=== PATIENT | male | born 1960 | race Hispanic/Latino ===

== ENCOUNTER 2023-02-08 21:29 | Inpatient (IN) | payer MEDICARE ==
[~2023-02-08 21:29] MED LIST: Iopamidol-370 76% 500 ML MDV (1 ML CHARGE) ONE
[2023-02-08 21:49] LABS: #Eosinphils 0.1 thou/uL (0.0-0.7); #Monocytes 0.6 thou/uL (0.11-0.59); #Neutrophils 7.7 thou/uL (1.40-6.50); %Basophils 0.1 % (0.0-1.0); %Eosinophils 0.7 % (0.0-10.0); %Lymphocytes 7.3 % (21.0-51.0); %Monocytes 6.7 % (0.0-10.0); Hematocrit 41.5 % (42.0-52.0); Hemoglobin 13.8 g/dL (14.0-18.0); Mean Corpuscular HGB CONC 33.3 g/dL (32.0-36.0); Mean Corpuscular Hemoglobin 31.2 pg (27.0-31.0); Mean Corpuscular Volume 93.9 fl (78.0-98.0); Mean Platelet Volume 11.1 fL (7.4-10.4); Platelet Count 142 10x3/uL (130-400); Red Blood Cell (RBC) Count 4.42 mill/uL (4.70-6.10); White Blood Cell (WBC) Count 9.1 10x3/uL (4.8-10.8)
[2023-02-08] MEDS ORDERED: Acetaminophen 500 MG TAB ONE (22:00)
[2023-02-08 22:15] LABS: ALT (SGPT) 18 U/L (8-55); AST (SGOT) 19 U/L (5-34); Albumin 4.1 g/dL (3.4-4.8); Alkaline Phosphatase 98 U/L (40-110); Anion Gap 26 mmol/L (10-20); BUN (Urea Nitrogen) 21 mg/dL (8.4-25.7); Bilirubin, Total 1.3 mg/dL (0.2-1.2); Calc. Creatinine Clearance 0 mL/min (70-130); Calcium 8.6 mg/dL (7.8-10.44); Carbon Dioxide 17 mmol/L (23-31); Chloride 103 mmol/L (98-107); Estimated GFR 46; Globulin 2.8 g/dL (2.4-3.5); Glucose 85 mg/dL (80-115); Lipase 26 U/L (8-78); Potassium 3.9 mmol/L (3.5-5.1); Protein, Total 6.9 g/dL (5.8-8.1); Sodium 142 mmol/L (136-145)
[2023-02-08] MEDS ORDERED: Cefepime 2 GM VIAL ONE (23:27)
[2023-02-08] MEDS ORDERED: VANCOMYCIN 1.25 GM/250 ML BAG 1.25 GM in Premix Bag 1 BAG IVPB SCH (23:45)
[2023-02-09 00:33] LABS: SARS-CoV-2 NAA Rapid Test Not Detected (NotDetected)
[2023-02-09] MEDS ORDERED: Furosemide 20 MG/2 ML VIAL ONE ×2 (00:33→07:57)
[2023-02-09 02:17] LABS: Anion Gap 16 mmol/L (10-20); BUN (Urea Nitrogen) 20 mg/dL (8.4-25.7); Calc. Creatinine Clearance 0 mL/min (70-130); Calcium 8.3 mg/dL (7.8-10.44); Carbon Dioxide 17 mmol/L (23-31); Chloride 106 mmol/L (98-107); Estimated GFR 51; Glucose 106 mg/dL (80-115); Potassium 3.8 mmol/L (3.5-5.1); Sodium 135 mmol/L (136-145)
[2023-02-09 02:41] LABS: Troponin I 0.023 ng/mL (< 0.028)
[2023-02-09] MEDS ORDERED: Calcium Carbonate 500 MG ChewTAB PO PRN (02:45)
[2023-02-09] MEDS ORDERED: Ondansetron ODT 4 MG TAB PO PRN (02:45)
[2023-02-09] MEDS ORDERED: Senokot S 8.6-50 MG TAB PO PRN (02:45)
[2023-02-09] MEDS ORDERED: Ondansetron PF 4 MG/2 ML Vial IVP PRN (02:45)
[2023-02-09] MEDS ORDERED: Acetaminophen 325 MG TAB PO PRN (02:45)
[2023-02-09] MEDS: Furosemide 20 MG/2 ML VIAL SLOW IVP SCH ×2 (05:50→14:39)
[2023-02-09 06:05] LABS: Troponin I 0.019 ng/mL (< 0.028)
[2023-02-09] MEDS ORDERED: Acetaminophen 325 MG TAB ONE (08:30)
[2023-02-09] MEDS: Guaifenesin DM 100-10/5 ML UDCUP PO PRN ×3 (08:35→19:47)
[2023-02-09] MEDS: Doxycycline 100 MG in Sodium Chloride 0.9% 100 ML IVPB SCH ×2 (09:01→19:47)
[2023-02-09] MEDS ORDERED: cefTRIAXone (ROCEPHIN) 1 GM VIAL ONE (11:11)
[2023-02-09] MEDS: cefTRIAXone\\ROCEPHIN 1 GM in Sodium Chloride 0.9% 100 ML IVPB SCH (11:17)
[2023-02-09 15:07] VITALS: BMI 29.5
[2023-02-10 05:44] LABS: #Eosinphils 0.1 thou/uL (0.0-0.7); #Monocytes 0.9 thou/uL (0.11-0.59); #Neutrophils 4.9 thou/uL (1.40-6.50); %Basophils 0.3 % (0.0-1.0); %Eosinophils 1.3 % (0.0-10.0); %Lymphocytes 13.9 % (21.0-51.0); %Monocytes 13.1 % (0.0-10.0); %Neutrophils 71.3 % (42.0-75.0); Mean Corpuscular HGB CONC 32.5 g/dL (32.0-36.0); Mean Corpuscular Hemoglobin 30.7 pg (27.0-31.0); Mean Corpuscular Volume 94.3 fl (78.0-98.0); Mean Platelet Volume 11.5 fL (7.4-10.4); Platelet Count 144 10x3/uL (130-400); RBC Distribution Width 14.3 % (11.5-14.5); Red Blood Cell (RBC) Count 4.24 mill/uL (4.70-6.10); White Blood Cell (WBC) Count 6.9 10x3/uL (4.8-10.8)
[2023-02-10] MEDS: Furosemide 40 MG/4 ML VIAL SLOW IVP SCH ×2 (05:58→14:36)
[2023-02-10 06:19] LABS: ALT (SGPT) 39 U/L (8-55); AST (SGOT) 38 U/L (5-34); Albumin 3.7 g/dL (3.4-4.8); Alkaline Phosphatase 104 U/L (40-110); Anion Gap 14 mmol/L (10-20); BUN (Urea Nitrogen) 22 mg/dL (8.4-25.7); Bilirubin, Total 1.2 mg/dL (0.2-1.2); Calc. Creatinine Clearance 69 mL/min (70-130); Calcium 8.5 mg/dL (7.8-10.44); Carbon Dioxide 22 mmol/L (23-31); Chloride 106 mmol/L (98-107); Estimated GFR 61; Globulin 3.3 g/dL (2.4-3.5); Glucose 83 mg/dL (80-115); Potassium 3.9 mmol/L (3.5-5.1); Sodium 138 mmol/L (136-145)
[2023-02-10] MEDS: Doxycycline 100 MG in Sodium Chloride 0.9% 100 ML IVPB SCH ×2 (08:23→20:31)
[2023-02-10] MEDS: cefTRIAXone\\ROCEPHIN 1 GM in Sodium Chloride 0.9% 100 ML IVPB SCH (11:33)
[2023-02-10] MEDS: Guaifenesin DM 100-10/5 ML UDCUP PO PRN ×2 (18:09→20:34)
[2023-02-10] MEDS: Sacubitril 24MG/Valsartan 26 MG TAB PO SCH (20:33)
[2023-02-10] MEDS: Carvedilol 6.25 MG TAB PO SCH (20:33)
[2023-02-10] MEDS ORDERED: Simvastatin 10 MG TAB PO SCH (21:00)
[2023-02-11] MEDS: Furosemide 40 MG/4 ML VIAL SLOW IVP SCH (05:58)
[2023-02-11] MEDS ORDERED: Levothyroxine 175 MCG TAB PO SCH (06:00)
[2023-02-11 06:21] LABS: #Eosinphils 0.1 thou/uL (0.0-0.7); %Basophils 0.3 % (0.0-1.0); %Eosinophils 2.2 % (0.0-10.0); %Lymphocytes 17.2 % (21.0-51.0); %Monocytes 15.6 % (0.0-10.0); %Neutrophils 64.4 % (42.0-75.0); Hematocrit 45.5 % (42.0-52.0); Mean Corpuscular Hemoglobin 30.5 pg (27.0-31.0); Mean Corpuscular Volume 92.5 fl (78.0-98.0); Mean Platelet Volume 11.3 fL (7.4-10.4); Platelet Count 148 10x3/uL (130-400); RBC Distribution Width 14.2 % (11.5-14.5); Red Blood Cell (RBC) Count 4.92 mill/uL (4.70-6.10); White Blood Cell (WBC) Count 6.2 10x3/uL (4.8-10.8)
[2023-02-11 06:46] LABS: Anion Gap 14 mmol/L (10-20); BUN (Urea Nitrogen) 22 mg/dL (8.4-25.7); Calc. Creatinine Clearance 80 mL/min (70-130); Carbon Dioxide 24 mmol/L (23-31); Chloride 102 mmol/L (98-107); Estimated GFR 73; Glucose 96 mg/dL (80-115); Potassium 3.1 mmol/L (3.5-5.1); Sodium 137 mmol/L (136-145)
[2023-02-11] MEDS: Sacubitril 24MG/Valsartan 26 MG TAB PO SCH (07:55)
[2023-02-11] MEDS: Doxycycline 100 MG in Sodium Chloride 0.9% 100 ML IVPB SCH (07:55)
[2023-02-11] MEDS: Carvedilol 6.25 MG TAB PO SCH (07:55)
[2023-02-11] MEDS ORDERED: Spironolactone 25 MG TAB PO SCH (08:00)
[2023-02-11] MEDS ORDERED: Potassium Chloride 20 MEQ TAB PO SCH (08:45)
[2023-02-11] MEDS: Furosemide 40 MG TAB PO SCH ×2 (08:58→14:48)
[2023-02-11] MEDS ORDERED: Empagliflozin 25 MG TAB PO SCH (09:00)
[2023-02-11 10:17] LABS: Magnesium 2.1 mg/dL (1.6-2.6)
[2023-02-11] MEDS ORDERED: Pantoprazole 40 MG VIAL IVP SCH ×2 (10:30→21:00)
[2023-02-11] MEDS: cefTRIAXone\\ROCEPHIN 1 GM in Sodium Chloride 0.9% 100 ML IVPB SCH (10:39)
[2023-02-11 11:22] VITALS: BP 99/58; TEMP 98
== END 2023-02-11 15:36 | disposition home or self-care (01) | DRG 193 ==
LOC: ERS 21:29 → ERHOLD 02-09 02:08 → 2SW 02-09 02:39 → OBSVTOIN 02-10 15:11
PROVIDERS: ADMIT Student in an Organized Health Care Education/Training Program; ATTEND Internal Medicine
DX: J18.9 Pneumonia, unspecified organism (principal); I50.23 Acute on chronic systolic (congestive) heart failure; I42.8 Other cardiomyopathies; Z20.822 Contact with and (suspected) exposure to COVID-19; E03.9 Hypothyroidism, unspecified; E78.5 Hyperlipidemia, unspecified; Z95.810 Presence of automatic (implantable) cardiac defibrillator; K21.9 Gastro-esophageal reflux disease without esophagitis; Z79.899 Other long term (current) drug therapy; Z79.890 Hormone replacement therapy; I11.0 Hypertensive heart disease with heart failure
CPT/HCPCS: 36415; 71045; 74177; 76705; 80048; 80053; 83605; 83690; 83735; 83880; 84145; 84484; 85025; 87040; 87086; 93005; 93306; 96360; 96365; 96366; 96367; 96375; 96376; C9113; G0378; J0692; J0696; J1940; J3370; J3490; Q9967